=== PATIENT | male | born 1955 | race African-American/Black ===

== ENCOUNTER 2017-04-09 13:22 | Emergency (ER) | payer OTHER ==
[~2017-04-09] VITALS: Wt 76.5 kg
[~2017-04-09 13:22] MED LIST: ASPI81TA3 PO; ATOR20TA38 PO; TERB250T46 PO
[2017-04-09] MEDS ORDERED: LIDOCAINE 1% (MDV) 20 ML INJ SC ONE (14:00)
[2017-04-09] MEDS ORDERED: CEPH-443 PO (14:30)
[2017-04-09] MEDS ORDERED: SULF1TAB31 PO (14:30)
--- NOTE | 2017-04-09 15:32 | ERD ---
ER Documentation Chief Complaint Date/Time DATE: 04/09/17 TIME: 15:30 Chief Complaint SWELLING ON BACK OF NECK HPI 62-year-old male comes in with recurring abscess in the back of the neck. Patient had an I&D done about 5 years ago he states that the pain is returned over the last 2 days. The swelling never went away according to the patient however pain is noted only noted for the past 2 days. There is localized pain associated with swelling to the abscess. He has not any fevers, chills. ROS All systems reviewed and are negative except as per history of present illness. Medications Home Meds Active Scripts Sulfamethoxazole/Trimethoprim* (Bactrim Ds* Tablet) 1 Each Tablet, 1 TAB PO BID , #14 TAB Prov:SHANEKA WISE PA-C 04/09/17 Cephalexin* (Keflex*) 500 Mg Capsule, 500 MG PO QID for 7 Days, CAP Prov:SHANEKA WISE PA-C 04/09/17 Atorvastatin Calcium* (Atorvastatin Calcium*) 20 Mg Tab, 40 MG PO DAILY, #30 TAB Prov:MURALI BRAVO 01/10/16 Aspirin (Aspirin) 81 Mg Chew, 81 MG PO DAILY, #30 TAB Prov:MURALI BRAVO 01/10/16 Reported Medications Terbinafine* (Lamisil*) 250 Mg Tablet, 250 MG PO DAILY, TAB 01/06/16 Allergies Allergies: Coded Allergies: No Known Allergy (Unverified , 01/08/16) PMhx/Soc History of Surgery: Yes (2 l hip replacement;l knee surgery; l ankle surgery;) Anesthesia Reaction: No Hx Neurological Disorder: No Hx Respiratory Disorders: No Hx Cardiac Disorders: Yes (htn) Hx Psychiatric Problems: No Hx Miscellaneous Medical Probl: No Hx Alcohol Use: Yes (beer occasionally;) Hx Substance Use: No Hx Tobacco Use: No Smoking Status: Never smoker Physical Exam Vitals Vital Signs Date Time Temp Pulse Resp B/P Pulse Ox O2 Delivery O2 Flow Rate FiO2 04/09/17 13:24 98.3 69 18 126/82 97 Physical Exam General: Well-developed, well-nourished. The patient appears in no acute distress. HEENT: Head is normocephalic, atraumatic. No scleral icterus. Neck: Supple. Nontender. Lungs: Clear to auscultation. Normal air movement. Heart: Regular rate and rhythm. S1 and S2 are normal. No murmurs, gallops, or rubs. Abdomen: Nondistended. Extremities: No clubbing or cyanosis. Moving extremities x 4. No weakness. Neurologic: Alert and oriented 3. No focal deficits. Normal speech and gait. Skin: There is a 4 cm area of induration with mild fluctuance to the back of the neck. It is erythematous but localized tenderness palpation. Results 24 hrs Current Medications Medications (Trade) Dose Ordered Sig/Collin Route PRN Reason Start Time Stop Time Status Last Admin Dose Admin Lidocaine (Xylocaine 1% (Mdv) 20 ml) 20 ml ONCE ONCE SC 04/09/17 14:00 04/09/17 14:01 DC Procedures/MDM Abscess Incision and Drainage with irrigation by me: Patient was verbally consented Location: Abscess on the back of the neck Anesthesia: Local 1% Lidocaine Technique: Irrigated. Disrupted loculations w/ instrumentation Packing: None Complications: Neurovascularly intact post procedure 48 hour wound check. Scar minimization instructions given. . Patient's skin symptoms have stabilized while they have been evaluated in the department and are appropriate for outpatient care and work up. Exam and w/u not consistent w/ sepsis, deep space infection, or foreign body. Medical decision making: This is a 62-year-old comes in for an abscess to the back of the neck that warranted incision and drainage. I was able to remove a copious amount of purulent drainage, and did not feel that patient needs packing at this time. It is superficial, much improved drainage and is appropriate for discharge oral antibiotics. I have asked the patient to follow- up with his primary care doctor, he may further benefit from secondary dermatologic evaluation as he has recurring pain and swelling to the same area. Departure Diagnosis: Primary Impression: Encounter for incision and drainage procedure Additional Impression: Abscess Condition: Good Patient Instructions: Abscess, Incision And Drainage Additional Instructions: Follow up in 2 days in your clinic for wound check. SHANEKA WISE PA-C Apr 09, 2017 15:32
== END 2017-04-09 14:55 | disposition home or self-care (01) ==
LOC: FTE 13:22
DX: L02.11 Cutaneous abscess of neck (principal); I10 Essential (primary) hypertension; Z79.82 Long term (current) use of aspirin; Z96.642 Presence of left artificial hip joint
CPT/HCPCS: 10061; Z7610

== ENCOUNTER 2017-04-12 13:51 | Emergency (ER) | payer OTHER ==
[~2017-04-12] VITALS: Wt 76.0 kg
[~2017-04-12 13:51] MED LIST changes: +CEPH-443 PO; +SULF1TAB31 PO
--- NOTE | 2017-05-22 13:59 | ERD ---
ER Documentation Chief Complaint Date/Time DATE: 05/22/17 TIME: 13:53 Chief Complaint PT HERE FOR RECHECK ON RECENT I&D ON BACK OF NECK HPI Patient is a 62 yo male presenting to the ED for recheck of his abscess to the back of his neck. He had it drained 2 days ago, by Shaneka Wise PA-C at this Emergency Department. He states he is currently improved. Pain has decreased. Symptoms are mild currently. He denies fevers, chills, pain, significant discharge and other symptoms currently. ROS All systems reviewed and are negative except as per history of present illness. Medications Home Meds Active Scripts Sulfamethoxazole/Trimethoprim* (Bactrim Ds* Tablet) 1 Each Tablet, 1 TAB PO BID , #14 TAB Prov:SHANEKA WISE PA-C 04/09/17 Cephalexin* (Keflex*) 500 Mg Capsule, 500 MG PO QID for 7 Days, CAP Prov:SHANEKA WISE PA-C 04/09/17 Atorvastatin Calcium* (Atorvastatin Calcium*) 20 Mg Tab, 40 MG PO DAILY, #30 TAB Prov:MURALI BRAVO 01/10/16 Aspirin (Aspirin) 81 Mg Chew, 81 MG PO DAILY, #30 TAB Prov:MURALI BRAVO 01/10/16 Reported Medications Terbinafine* (Lamisil*) 250 Mg Tablet, 250 MG PO DAILY, TAB 01/06/16 Allergies Allergies: Coded Allergies: No Known Allergy (Unverified , 01/08/16) PMhx/Soc History of Surgery: Yes (2 l hip replacement;l knee surgery; l ankle surgery;) Anesthesia Reaction: No Hx Neurological Disorder: No Hx Respiratory Disorders: No Hx Cardiac Disorders: Yes (htn) Hx Psychiatric Problems: No Hx Miscellaneous Medical Probl: No Hx Alcohol Use: Yes (beer occasionally;) Hx Substance Use: No Hx Tobacco Use: No Physical Exam Vitals Temp: 97.6F pulse: 92 Resp: 17 BP: 126/76 Pulse Ox: 99% on RA. Physical Exam Const: Non toxic, well appearing meal in no acute distress Head: Atraumatic Eyes: Normal Conjunctiva ENT: Normal External Ears, Nose and Mouth. Neck: Full range of motion..~ No meningismus. Skin: There is a 2cm x 1cm slightly indurated area to the back of neck that is open, with no current purulent material discharged. Back: No midline or flank tenderness Ext: No cyanosis, or edema Neur: Awake and alert Psych: Normal Mood and Affect Procedures/MDM 62 yo male presents for wound recheck of abscess to posterior neck. On exam, vitals are reviewed and within normal limits. The patient does have a healing abscess to posterior neck that has been continuing to drain, as it was left open. He was advised to continue Bactrim and Keflex as prescribed and follow up with his Primary Care Physician and a [employer] Operator if warranted. No signs of significant cellulitis, deep tissue infection, or sepsis at time of discharge. Pt was given strict ER return precautions, as well as instructions to follow up with his PCP in 1-2 days. He agreed with the plan and instructions and was hemodynamically stable at time of discharge. Departure Diagnosis: Primary Impression: Encounter for wound re-check Condition: Fair Patient Instructions: Post Op Wound Check, General Additional Instructions: Follow up with your PCP within the next 1-3 days for a repeat evaluation and a possible referral to a specialist, if required. Return the the emergency department immediately if symptoms worsen or change. If you have any questions regarding medications, ask your pharmacist or us before you leave. If any adverse reactions, occur while taking your medications, discontinue the treatment and return to the emergency department immediately. If any new or worsening symptoms, uncontrolled fevers, or other unexplained symptoms occur, return to the emergency department immediately. Take your medications as directed, and complete the entire course of treatment. HÉCTOR PINEDA PA-C May 22, 2017 13:59
== END 2017-04-12 14:10 | disposition home or self-care (01) ==
LOC: FTE 13:51 → E/R 14:10
DX: Z48.01 Encounter for change or removal of surgical wound dressing (principal); I10 Essential (primary) hypertension; Z79.82 Long term (current) use of aspirin
CPT/HCPCS: 99281

== ENCOUNTER 2018-09-01 07:24 | Day surgery (SDC) | END 2018-09-01 10:39 | disposition home or self-care (01) ==